=== PATIENT | male | born 1985 | race African-American/Black ===

== ENCOUNTER 2017-02-22 09:48 | Emergency (ER) | payer SELFPAY ==
[~2017-02-22] VITALS: Ht 180.3 cm; Wt 95.3 kg
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
--- NOTE | 2017-02-22 11:40 | Diagnostic Imaging Report ---
\H\CT Brain without Intravenous Contrast INDICATION: \N\Trauma.\H\ COMPARISON: \N\None\H\ TECHNIQUE: Serial axial images were obtained from the the skull base through the vertex without intravenous contrast. Coronal reformats were obtained. Dose Estimate: Total DLP \N\1337\H\ mGycm CTDIvol \N\70\H\ mGy FINDINGS: The black white matter differentiation appears normal. There is no evidence of acute intracranial hemorrhage or territorial infarct. The cortical sulci, ventricles and extra-axial CSF spaces are normal in size for patient's age. There is no space occupying lesion, mass effect or midline shift. The mastoid air cells are clear. Opacification of the right frontal sinus and some of the ethmoid air cells is noted. The osseous structures are unremarkable. \N\\H\IMPRESSION: 1. No acute intracranial hemorrhage, midline shift or mass effect. \N\
[2017-02-22] MEDS ORDERED: AMOXICILLIN500 MG ORAL (12:04)
[2017-02-22 12:12] VITALS: BP 128/75
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
== END 2017-02-22 12:15 ==
LOC: EMR 10:24
DX: S00.83XA Contusion of other part of head, initial encounter (principal); S00.03XA Contusion of scalp, initial encounter; H11.31 Conjunctival hemorrhage, right eye; M54.9 Dorsalgia, unspecified; Y04.0XXA Assault by unarmed brawl or fight, initial encounter; Y93.9 Activity, unspecified; Y92.9 Unspecified place or not applicable
CPT/HCPCS: 70450; 70486; 99283